=== PATIENT | male | born 1980 | race Caucasian/White ===

== ENCOUNTER 2023-03-20 21:26 | Inpatient (IN) | payer OTHER ==
[~2023-03-20] VITALS: Ht 172.7 cm; Wt 86.0 kg
[2023-03-20] MEDS ORDERED: GABA-1181 PO (21:44)
[2023-03-20] MEDS ORDERED: MIRT-149 PO (21:44)
[2023-03-20] MEDS ORDERED: 0.9% SODIUM CHLORIDE 10 ML SYRINGE IVP PRN (22:45)
[2023-03-20] MEDS ORDERED: ONDANSETRON HCL 4 MG/2 ML VIAL IVP PRN (22:45)
[2023-03-20] MEDS ORDERED: ACETAMINOPHEN 325 MG TABLET PO PRN (22:45)
[2023-03-21] MEDS ORDERED: SODIUM CHLORIDE 0.9% 1,000 ML IV ONE (07:15)
[2023-03-21] MEDS ORDERED: LORazepam 2 MG/ML VIAL IVP PRN (07:30)
[2023-03-21] MEDS ORDERED: ONDANSETRON HCL 4 MG/2 ML VIAL IVP PRN (07:30)
[2023-03-21] MEDS ORDERED: MAGNESIUM HYDROXIDE SUSPENSION 30 ML UDCUP PO PRN (07:30)
[2023-03-21] MEDS: FAMOTIDINE 20 MG TABLET PO SCH (09:00)
[2023-03-21 12:05] VITALS: BP 126/46
[2023-03-21 15:24] VITALS: BP 110/57
[2023-03-21] MEDS: ACETAMINOPHEN 325 MG TABLET PO PRN (17:40)
[2023-03-21 19:59] LABS: ANION GAP 6 mmol/L (8-16); CALCIUM, TOTAL 9.1 mg/dL (8.8-10.5); CARBON DIOXIDE 29 mmol/L (22-29); CHLORIDE 103 mmol/L (98-107); CREATININE 0.88 mg/dL (0.60-1.30); GLOMERULAR FILTR. RATE CALC > 60 mL/min (>60); GLUCOSE,RANDOM 127 mg/dL (70-110); POTASSIUM 4.7 mmol/L (3.5-5.1); SODIUM SERUM 138 mmol/L (136-145)
[2023-03-21 20:07] LABS: AMPHET/METH SCREEN,URINE POSITIVE (NEGATIVE); BARBITURATE SCREEN, URINE NEGATIVE (NEGATIVE); BENZODIAZEPINES SCREEN,URINE NEGATIVE (NEGATIVE); CANNABINOID SCREEN,URINE NEGATIVE (NEGATIVE); COCAINE SCREEN,URINE NEGATIVE (NEGATIVE); METHADONE SCREEN, URINE NEGATIVE (NEGATIVE); OPIATE SCREEN,URINE NEGATIVE (NEGATIVE); PHENCYCLIDINE SCREEN,URINE NEGATIVE (NEGATIVE)
[2023-03-21 20:09] VITALS: BP 109/60
[2023-03-21] MEDS: LORazepam 2 MG/ML VIAL IVP PRN (21:53)
[2023-03-21 23:20] VITALS: BP 102/57
[2023-03-22 04:36] VITALS: BP 119/72
[2023-03-22] MEDS: ACETAMINOPHEN 325 MG TABLET PO PRN ×2 (06:26→18:25)
[2023-03-22] MEDS: LORazepam 2 MG/ML VIAL IVP PRN ×3 (06:26→19:52)
[2023-03-22 07:13] VITALS: BP 136/75
[2023-03-22] MEDS: FAMOTIDINE 20 MG TABLET PO SCH (09:16)
[2023-03-22 11:15] VITALS: BP 109/42
[2023-03-22 15:25] VITALS: BP 120/61
[2023-03-22 20:10] VITALS: BP 106/52
[2023-03-22 23:53] VITALS: BP 113/72
[2023-03-23] MEDS: LORazepam 2 MG/ML VIAL IVP PRN ×3 (02:01→13:59)
[2023-03-23 06:25] VITALS: BP 94/49
[2023-03-23 07:22] VITALS: BP 120/58
[2023-03-23] MEDS: FAMOTIDINE 20 MG TABLET PO SCH (07:59)
[2023-03-23] MEDS: ACETAMINOPHEN 325 MG TABLET PO PRN ×2 (07:59→20:04)
[2023-03-23 09:35] LABS: BASOPHILS % (AUTO) 0.2 % (0.0-2.0); EOSINOPHILS % (AUTO) 1.1 % (1.0-6.0); HEMATOCRIT 47.8 % (41-53); HEMOGLOBIN 15.7 g/dL (13.5-17.5); LYMPHOCYTES # (AUTO) 1.2 K/uL (1.0-4.8); LYMPHOCYTES % (AUTO) 16.8 % (22.0-44.0); MEAN CORPUSCULAR HEMOGLOBIN 29.2 pg (26.0-34.0); MEAN CORPUSCULAR HGB CONC 32.9 G/dL (31.0-37.0); MEAN CORPUSCULAR VOLUME 89 fL (80-100); MONOCYTES # (AUTO) 0.5 K/uL (0.1-1.0); MONOCYTES % (AUTO) 7.3 % (2.0-9.0); NEUTROPHILS # (AUTO) 5.3 K/uL (1.8-7.7); NEUTROPHILS % (AUTO) 74.6 % (40.0-70.0); PLATELET COUNT (AUTO) 200 K/uL (150-450); RED BLOOD CELL COUNT(AUTO) 5.38 MIL/uL (4.50-5.90); RED CELL DISTRIBUTION WIDTH 14.9 % (11.5-14.5)
[2023-03-23 09:41] LABS: ALANINE AMINOTRANSFERASE 95 U/L (12-78); ALKALINE PHOSPHATASE 63 U/L (46-116); ANION GAP 10 mmol/L (8-16); ASPARTATE AMINOTRANSFERASE 26 U/L (15-37); CALCIUM, TOTAL 9.2 mg/dL (8.8-10.5); CARBON DIOXIDE 26 mmol/L (22-29); CHLORIDE 103 mmol/L (98-107); CREATININE 0.96 mg/dL (0.60-1.30); GLOMERULAR FILTR. RATE CALC > 60 mL/min (>60); GLUCOSE,RANDOM 109 mg/dL (70-110); SODIUM SERUM 139 mmol/L (136-145); TOTAL PROTEIN, SERUM 7.4 g/dL (6.4-8.2)
[2023-03-23 11:35] VITALS: BP 114/71
[2023-03-23 16:05] VITALS: BP 111/67
[2023-03-23] MEDS ORDERED: ZOLPIDEM TARTRATE 10 MG TABLET PO PRN (19:45)
[2023-03-23 19:48] VITALS: BP 101/60
[2023-03-23] MEDS: GABAPENTIN 300 MG CAPSULE PO SCH (20:00)
[2023-03-23] MEDS ORDERED: MIRTAZAPINE 30 MG TABLET PO SCH (21:00)
[2023-03-23 23:34] VITALS: BP 122/51
[2023-03-24 04:20] VITALS: BP 101/68
[2023-03-24] MEDS: FAMOTIDINE 20 MG TABLET PO SCH (08:03)
[2023-03-24] MEDS: GABAPENTIN 300 MG CAPSULE PO SCH (08:03)
[2023-03-24 08:09] VITALS: BP 124/88
[2023-03-24 11:29] VITALS: BP 124/78
== END 2023-03-24 12:55 | DRG 918 ==
LOC: EMS 21:28 → UNDOADMIN 23:14 → AHU 23:14 → 5S 03-21 08:35
PROVIDERS: ADMIT Internal Medicine; ATTEND Internal Medicine
DX: T43.621A Poisoning by amphetamines, accidental (unintentional), initial encounter (principal); G40.89 Other seizures; F15.13 Other stimulant abuse with withdrawal; F11.13 Opioid abuse with withdrawal; T40.2X1A Poisoning by other opioids, accidental (unintentional), initial encounter; F19.10 Other psychoactive substance abuse, uncomplicated; F17.200 Nicotine dependence, unspecified, uncomplicated; Y92.89 Other specified places as the place of occurrence of the external cause; Z91.199 Patient's noncompliance with other medical treatment and regimen due to unspecified reason
CPT/HCPCS: 70450; 80048; 80053; 80307; 85025; 93005; 99285; J2060; J7030